=== PATIENT | female | born 1965 | race Caucasian/White ===

== ENCOUNTER 2016-07-25 13:17 | Outpatient (CLI) | payer OTHER ==
[2016-07-25 13:28] LABS: BASOPHILS % 0.8 (0.0-1.5); EOSINOPHILS % 5.1 % (0.0-6.8); LYMPHOCYTES # 3.1 # k/uL (0.6-4.0); MEAN CORPUSCULAR HEMOGLOBIN 30.4 pg (28.0-34.0); MONOCYTES # 0.4 # k/uL (0.0-0.9); MONOCYTES % 5.5 % (0.0-11.0); NEUTROPHILS # 3.8 # k/uL (1.4-7.7)
[2016-07-25 13:54] LABS: eGFR (African) > 60; eGFR (Non-African) > 60
== END 2016-07-25 13:18 ==
LOC: LAB 13:17
PROVIDERS: ATTEND Family Medicine
DX: R53.83 Other fatigue (principal)
CPT/HCPCS: 36415; 80053; 85025

== ENCOUNTER 2017-02-22 14:04 | Outpatient (CLI) | payer OTHER ==
--- NOTE | 2017-02-22 19:00 | Diagnostic Imaging Report ---
SAMSON WILLIAM [facility] [id number] [facility] [address] [place], [place]. [address] Report Submission Date: Feb 22, 2017 2:59:55 PM CDT Patient Study Name: RICKIE LORD Date: Feb 22, 2017 2:11:38 PM CDT Modality Type: CR Gender: F Description: CHEST : 61 Institution: [facility] Physician: SAMSON WILLIAM Examination: PA and lateral chest. History: Evaluate lung arndt. Findings: PA lateral chest demonstrate a normal cardiac and mediastinal silhouette. Mild apical emphysematous changes. No focal infiltrate. No effusion. No blunting of the costophrenic margins. Osseous structures are appropriate for age. Impression: Mild emphysematous changes. No acute pulmonary process. Electronically signed on Feb 22, 2017 2:59:55 PM CDT by: Nehemias CHUNG
== END 2017-02-22 14:05 ==
LOC: LAB 14:04
PROVIDERS: ATTEND Family Medicine
DX: E03.9 Hypothyroidism, unspecified (principal); M89.8X1 Other specified disorders of bone, shoulder
CPT/HCPCS: 36415; 71020; 84443

== ENCOUNTER 2017-09-21 15:17 | Outpatient (CLI) | payer OTHER | END 2017-09-21 15:25 | LOC: LAB 15:17 | PROVIDERS: ATTEND Family Medicine | DX: E03.9 Hypothyroidism, unspecified (principal); Z12.4 Encounter for screening for malignant neoplasm of cervix | CPT/HCPCS: 36415; 84443; 88148; G0143 ==

== ENCOUNTER 2019-03-28 09:05 | Outpatient (CLI) | payer OTHER ==
[2019-04-04 13:29] LABS: BASOPHILS % 0.5 % (0.0-1.5); NEUTROPHILS # 3.9 # k/uL (1.4-7.7); eGFR (Non-African) > 60
[2019-04-04 13:30] LABS: TSH < 0.010 mIU/l (0.465-4.685)
== END 2019-03-28 09:35 | disposition home or self-care (01) ==
LOC: LAB 09:05
PROVIDERS: ATTEND Family Medicine
DX: R10.9 Unspecified abdominal pain (principal)
CPT/HCPCS: 36415; 74177; 80053; 84443; 85025; Q9967